=== PATIENT | female | born 1980 | race Two or more races ===

== ENCOUNTER 2022-12-24 16:40 | Emergency (ER) | payer MEDICAID ==
[~2022-12-24] VITALS: Ht 175.3 cm; Wt 160.6 kg
[2022-12-24 16:40] VITALS: BP 145/76; RESP 16; O2SAT 96
[2022-12-24 17:54] LABS: Basophils # (auto) 0.1 10 ^3/uL (0-0.2); Eosinophils # (auto) 0.2 10 ^3/uL (0-0.8); Hemoglobin 12.1 g/dL (12.2-16.2); Lymphocytes # (auto) 2.4 10 ^3/uL (0.4-5.4); Neutrophils # (auto) 5.6 10 ^3/uL (1.6-8.6)
[2022-12-24 17:55] LABS: Basophils % (auto) 0.6 % (0.0-2.0); Eosinophils % (auto) 2.6 % (0.0-7.0); Hematocrit 37.7 % (36.0-46.0); Lymphocytes % (auto) 26.9 % (10.0-50.0); Mean Corpuscular Hemoglobin 24.9 pg (28.0-32.0); Mean Corpuscular Hgb Conc. 32.1 g/dL (32.0-36.0); Mean Corpuscular Volume 77.6 fL (80.0-100.0); Monocytes # (auto) 0.7 10 ^3/uL (0-1.3); Monocytes % (auto) 7.4 % (0.0-12.0); Neutrophils % (auto) 62.5 % (37.0-80.0); Red Blood Cells 4.85 10^6/uL (4.0-5.20); Red Cell Distribution Width 14.9 % (11.8-14.3)
[2022-12-24 18:14] LABS: Alanine Aminotransferase 23 U/L (7-40); Albumin 4.1 g/dL (3.2-4.8); Alkaline Phosphatase 110 U/L (46-116); Anion Gap 6.1 (5-15); Aspartate Aminotransferase 13 U/L (13-40); BUN/Creatinine Ratio 10.2 (10.0-20.0); Bilirubin, Total 0.3 mg/dL (0.2-1.0); Blood Urea Nitrogen 9 mg/dL (9-23); Calcium 9.2 mg/dL (8.5-10.1); Carbon Dioxide 27.9 mmol/L (20-30); Chloride 106 mmol/L (98-107); Glucose 105 mg/dL (74-106); Sodium 140 mmol/L (136-145)
[2022-12-24 18:15] LABS: Total Protein 6.7 g/dL (5.7-8.2)
[2022-12-24 23:52] VITALS: PULSE 75
== END 2022-12-25 01:24 | disposition home or self-care (01) ==
LOC: ER 16:40
DX: R07.89 Other chest pain (principal); R60.9 Edema, unspecified
CPT/HCPCS: 36415; 80053; 84484; 85025; 85379; 93005; 93970

== ENCOUNTER 2023-02-01 10:21 | Emergency (ER) | payer MEDICAID ==
[~2023-02-01] VITALS: Ht 175.3 cm; Wt 161.0 kg
[2023-02-01 10:39] VITALS: BP 183/94; PULSE 98; RESP 20; TEMP 97.8; O2SAT 96
[2023-02-01] MEDS: DexAMETHasone SOD PHOS 10MG/1ML VIAL INJ IM ONE ×2 (11:00→11:32)
[2023-02-01 11:51] LABS: COVID19 ANTIGEN SOFIA FIA NEGATIVE (NEGATIVE); Rapid Influenza A Negative (Negative); Rapid Influenza B Negative (Negative)
[2023-02-01] MEDS ORDERED: LORA10CA PO (12:09)
[2023-02-01] MEDS ORDERED: ACET500T58 PO (12:09)
[2023-02-01] MEDS ORDERED: ALBU108A5 IN (12:09)
[2023-02-01] MEDS ORDERED: BENZ100C97 PO (12:09)
== END 2023-02-01 12:13 | disposition home or self-care (01) ==
LOC: ER 10:21
DX: J06.9 Acute upper respiratory infection, unspecified (principal); J45.909 Unspecified asthma, uncomplicated; Z20.822 Contact with and (suspected) exposure to COVID-19
CPT/HCPCS: 36415; 71046; 87426; 87804; J1100

== ENCOUNTER 2023-02-08 13:06 | Emergency (ER) | payer MEDICAID ==
[~2023-02-08] VITALS: Ht 172.7 cm; Wt 160.2 kg
[~2023-02-08 13:06] MED LIST: ACET500T58 PO; ALBU108A5 IN; BENZ100C97 PO; LORA10CA PO
[2023-02-08 13:33] VITALS: BP 157/82; PULSE 91; RESP 22; O2SAT 96
== END 2023-02-08 19:55 | disposition left against medical advice (07) ==
LOC: ER 13:06
DX: M25.561 Pain in right knee (principal); M79.661 Pain in right lower leg; M79.89 Other specified soft tissue disorders; Z53.21 Procedure and treatment not carried out due to patient leaving prior to being seen by health care provider